=== PATIENT | male | born 1965 | race Caucasian/White ===

== ENCOUNTER 2018-08-09 11:32 | Emergency (ER) | payer OTHER ==
[2018-08-09 11:33] VITALS: BMI 36.9
[2018-08-09 12:05] VITALS: RESP 18; TEMP 98.7
--- NOTE | 2018-08-09 12:53 | ED PDOC ---
Arrival/HPI - General Chief Complaint: Lower Extremity Problem/Injury Time Seen by Provider: 08/09/18 11:56 Historian: Patient - History of Present Illness Narrative History of Present Illness (Text): 08/09/18 12:55 A 52 year old male presents to the emergency department complaining of left hip pain radiating down left leg since earlier today. Patient reports he was painting and had sudden pain. States pain worsens with movement/position. Patient denies any groin numbness, or any other complaints at this time. PMD: Dr. Wilkinson Past Medical History - Provider Review Nursing Documentation Reviewed: Yes - Past History Past History: No Previous - Infectious Disease Hx of Infectious Diseases: None - Tetanus Immunization Tetanus Immunization: Unknown - Cardiac Hx Cardiac Disorders: No - Pulmonary Hx Respiratory Disorders: No - Neurological Hx Neurological Disorder: No - HEENT Hx HEENT Disorder: No - Renal Hx Renal Disorder: No - Endocrine/Metabolic Hx Endocrine Disorders: No - Hematological/Oncological Hx Blood Disorders: No - Integumentary Hx Dermatological Disorder: No - Musculoskeletal/Rheumatological Hx Musculoskeletal Disorders: Yes Other/Comment: right lower extremity pain - Gastrointestinal Hx Gastrointestinal Disorders: No - Genitourinary/Gynecological Hx Genitourinary Disorders: No - Psychiatric Hx Psychophysiologic Disorder: No Hx Substance Use: No - Surgical History Hx Cholecystectomy: Yes Other/Comment: polyp removal from colon - Anesthesia Hx Anesthesia: Yes Hx Anesthesia Reactions: No Hx Malignant Hyperthermia: No Family/Social History - Physician Review Nursing Documentation Reviewed: Yes Family/Social History: No Known Family HX Smoking Status: Never Smoked Hx Alcohol Use: No Hx Substance Use: No Hx Substance Use Treatment: No Allergies/Home Meds Allergies/Adverse Reactions: Allergies No Known Allergies Allergy (Verified 10/19/15 17:53) Review of Systems - Physician Review All systems were reviewed & negative as marked: Yes - Review of Systems Musculoskeletal: Other (left hip pain radiating down left leg) Neurological: absent: Other (no groin numbness) Physical Exam - Physical Exam Narrative Physical Exam (Text): Gen: VS reviewed, alert, well developed, well nourished, nontoxic, mild distress. ENT: normal pharynx. Eye: EOMI, PERRL. Neck: no JVD, supple, no adenopathy. CV: regular rate, regular rhythm, no rubs, no murmur, no gallops, S1, S2, pulses equal and strong. Pulm: no distress, clear to auscultation, no wheeze, no rhonchi, breath sounds equal, no rales. Abd: soft, nontender, no guarding, no rebound, no rigidity, normal bowel sounds. Ext: no edema, limited ROM to left hip/leg secondary to pain. Skin: good color, no rash, no cyanosis. Psych: responds appropriately to questions, normal affect. Neuro: oriented x 3, CN2-12 intact grossly, motor intact, sensation intact. Vital Signs Reviewed: Yes Vital Signs Temp Pulse Resp BP Pulse Ox 08/09/18 11:33 98.7 F 67 18 112/62 97 Temperature: Afebrile Blood Pressure: Normal Pulse: Regular Respiratory Rate: Normal Appearance: Positive for: Well-Appearing, Non-Toxic, Comfortable Pain Distress: Mild Mental Status: Positive for: Alert and Oriented X 3 Medical Decision Making ED Course and Treatment: 08/09/18 12:56 Impression: 52 year old male with left hip pain to left leg. Plan: -- Tylenol -- Flexeril -- Decadron -- Toradol -- Lumbar Spinal X-Ray -- Reassess and disposition Progress Notes: 08/09/18 15:01 patient seen for recurrent radicualr pain, no neuro deficits, pain improved after emergency department medication intervention. patient understands and agreeable to plan and will follow up with his pcp for possible advanced imaging which may include an MRI. - RAD Interpretation Radiology Orders: 08/09/18 12:20 LS SPINE WITH OBL > 18 YRS OLD [RAD] Stat - Medication Orders Current Medication Orders: Discontinued Medications Acetaminophen (Tylenol 325mg Tab) 975 mg PO STAT STA Stop: 08/09/18 12:21 Last Admin: 08/09/18 12:42 Dose: 975 mg MAR Pain/Vitals Document 08/09/18 12:42 LA (Rec: 08/09/18 12:42 LA [id number]) Pain Reassessment Is This A Pain ReAssessment? No Sleep Is patient sleeping during reassessment? No Presence of Pain Presence of Pain Yes Pain Scale Used Protocol: PSCALES Pain Scale Used Numeric Location Pain Location Body Site Back Cyclobenzaprine HCl (Flexeril) 5 mg PO STAT STA Stop: 08/09/18 12:21 Last Admin: 08/09/18 12:41 Dose: 5 mg Dexamethasone (Decadron Inj) 10 mg IM STAT STA Stop: 08/09/18 12:22 Last Admin: 08/09/18 12:42 Dose: 10 mg IM Administration Charges Document 08/09/18 12:42 LA (Rec: 08/09/18 12:42 LA [id number]) Injection Site MAR Injection Site Right Arm Charges for Administration # of IM Administrations 1 Ketorolac Tromethamine (Toradol) 60 mg IM STAT STA Stop: 08/09/18 12:21 Last Admin: 08/09/18 12:41 Dose: 60 mg MAR Pain Assessment Document 08/09/18 12:41 LA (Rec: 08/09/18 12:42 LA [id number]) Pain Reassessment Is this a pain reassessment? No Presence of Pain Presence of Pain Yes Pain Scale Used Protocol: PSCALES Pain Scale Used Numeric Description Pain Behavior Guarding IM Administration Charges Document 08/09/18 12:41 LA (Rec: 08/09/18 12:42 LA [id number]) Injection Site MAR Injection Site Left Arm Charges for Administration # of IM Administrations 1 - Scribe Statement The provider has reviewed the documentation as recorded by the Dk Barr Provider Scribe Attestation: All medical record entries made by the Scribromero were at my direction and personally dictated by me. I have reviewed the chart and agree that the record accurately reflects my personal performance of the history, physical exam, medical decision making, and the department course for this patient. I have also personally directed, reviewed, and agree with the discharge instructions and disposition. Disposition/Present on Arrival - Present on Arrival Any Indicators Present on Arrival: No History of DVT/PE: No History of Uncontrolled Diabetes: No Urinary Catheter: No History of Decub. Ulcer: No History Surgical Site Infection Following: None - Disposition Have Diagnosis and Disposition been Completed?: Yes Diagnosis: Radiculopathy of lumbosacral region Disposition: HOME/ ROUTINE Disposition Time: 15:03 Patient Plan: Discharge Condition: STABLE Discharge Instructions (ExitCare): Radiculopathy (DC) Additional Instructions: follow up with your regular doctor. return for any new or worsening symptoms. Prescriptions: Cyclobenzaprine [Flexeril] 5 mg PO TID #15 tab Ibuprofen [Motrin Tab] 600 mg PO QID #42 tab Lidocaine 5% [Lidoderm] 1 ea TD Q12H #30 patch Prednisone [Deltasone] 20 mg PO DAILY 5 Days #10 tablet Referrals: Sushant Wilkinson [Primary Care Provider] - Follow up with primary Forms: [employer] (Slovak)
--- NOTE | 2018-08-09 15:38 | RAD ---
Date of service: 08/09/2018 PROCEDURE: Radiographs of the Lumbar Spine. HISTORY: pain, left radicular pain COMPARISON: No prior. FINDINGS: BONES: Normal alignment. No listhesis. No fracture. DISC SPACES: Unremarkable. OTHER FINDINGS: None. IMPRESSION: Unremarkable radiographs of the lumbar spine.
[2018-08-09 15:39] VITALS: BP 115/61; PULSE 65; O2SAT 100
== END 2018-08-09 15:41 | disposition home or self-care (01) ==
LOC: ED 11:32
DX: M54.17 Radiculopathy, lumbosacral region (principal)
CPT/HCPCS: 72110; 96372; 99284; J1100; J1885